=== PATIENT | female | born 1995 | race Caucasian/White ===

== ENCOUNTER 2022-10-19 19:33 | Emergency (ER) | payer MEDICAID, SELFPAY ==
[2022-10-19 19:33] VITALS: BP 136/62; PULSE 89; RESP 23; TEMP 36.8; O2SAT 100; BMI 43.9
--- NOTE | 2022-10-19 19:36 | ECG_ITS ---
APPROVED REPORT Exam: Resting ECG HR:86 bpm ECG Measurements Heart Rate 86 AXES NM 123 P 41 QRSd 90 QRS 92 QT 355 T 79 QTc 399 Conclusion SINUS RHYTHM BORDERLINE RIGHT AXIS DEVIATION [QRS AXIS > 90] BORDERLINE ECG UNCONFIRMED REPORT Electronically signed by : Terrence Sheffield MD 10/21/2022 09:56:36
--- NOTE | 2022-10-19 19:46 | XR_ITS ---
PROCEDURE INFORMATION: Exam: XR Chest Exam date and time: 10/19/22 07:45 PM Age: 27 years old Clinical indication: Injury or trauma; Patient HX: Bee sting per patient. ; Additional info: lesvia HERNANDEZ TECHNIQUE: Imaging protocol: Radiologic exam of the chest. Views: 2 views. COMPARISON: No relevant prior studies available. FINDINGS: Lungs: Unremarkable. No consolidation. Pleural spaces: Unremarkable. No pleural effusion. No pneumothorax. Heart/Mediastinum: Unremarkable. No cardiomegaly. Bones/joints: Unremarkable. IMPRESSION: No acute findings.
[2022-10-19 19:52] VITALS: PULSE 86
[2022-10-19 19:58] LABS: Basophils % 0.2 % (0.1-2.0); Eosinophils # 0.1 K/mm3 (0.0-0.4); Eosinophils % 1.1 % (0.1-12.0); Hematocrit 40.4 % (37.0-47.0); Hemoglobin 13.3 g/dL (12.2-16.2); Lymphocytes # 3.7 K/mm3 (0.7-4.5); Lymphocytes % 35.1 % (10-50); Mean Corpuscular Hemoglobin 28.4 pg (27.0-31.2); Mean Corpuscular Volume 85.9 fl (81-99); Monocytes # 0.7 K/mm3 (0.1-1.0); Monocytes % 6.2 % (1.7-9.3); Neutrophils # 6.1 K/mm3 (1.8-7.8); Neutrophils % 57.4 % (37.0-80.0); Platelet Count 256 K/mm3 (142-424); Red Cell Distribution Width 13.2 % (11.5-17.5); White Blood Count 10.6 K/mm3 (4.8-10.8)
[2022-10-19 20:03] LABS: Anion Gap 13.9 mEq/L (5-15); Blood Urea Nitrogen 16 mg/dl (7-17); Calcium 8.8 mg/dl (8.4-10.2); Carbon Dioxide 27 mmol/L (22.0-30.0); Chloride 103 mmol/L (98-107); Creatinine Clearance Estimated 122 mL/min (50-200); Estimated Glomerular Filt Rate 100 ml/min (>60); GFR (African American) 121 ML/MIN (>60); Glucose 114 mg/dl (74-100); Magnesium 1.8 mg/dl (1.6-2.3); Potassium 3.9 mmoL/L (3.5-5.1); Sodium 140 mmol/L (136-145)
[2022-10-19 20:08] LABS: C-Reactive Protein 2.2 mg/L (0-4)
--- NOTE | 2022-10-19 20:17 | HMH.EDALLER ---
Discharge Plan Disposition Patient Disposition: Home, Self-Care Prescriptions Prescriptions: New prednisone [prednisone] 20 mg tablet 20 mg PO BID Qty: 10 0RF epinephrine [EpiPen 2-Rolan] 0.3 mg/0.3 mL auto-injector 0.3 mg IM Q10M PRN (Reason: anaphylaxis) Qty: 2 0RF Rx Instructions: for 2 doses Referrals Follow up/Referrals: Estrella Ng APRN [Primary Care Provider] - See instructions Bert Winn [Referring] - See instructions Clinical Impressions Clinical Impression: Allergic reaction Instructions Patient Instructions: DI for Insect Bites and Stings Discharge ED Provider: Giacomo (ED)Jun Allergic React/Insect Bite HPI General Chief complaint: Allergic Reaction Stated complaint: Chest Pain Time Seen by Provider: 10/19/22 20:00 Mode of Arrival - ED Triage: Family Vehicle Source of Information: Patient and Medical Record Limitations: No Limitations History of Present Illness HPI narrative: after bee sting dev chest pain and itchy throat - MD complaint: allergic reaction Onset (ago): hour(s) Exposure: insect bite Symptoms: itching and difficulty breathing Treatment prior to arrival: none Allergies Allergy/AdvReac Type Severity Reaction Status Date / Time No Known Allergies Allergy Verified 10/19/22 19:39 Previous Allergic Reaction History: none Severity: moderate Related Data Previous Rx's Medication Instructions Recorded epinephrine 0.3 mg/0.3 mL 0.3 mg (0.3 mL) IM Q10M PRN 10/19/22 injection, auto-injector (EpiPen anaphylaxis #2 ea 2-Rolan) prednisone 20 mg tablet 20 mg PO BID #10 tabs 10/19/22 [facility] Disclaimer: The information contained in this section may have been updated after the patient was seen, as this information can be updated by other users. Social History Smoking Status: Current every day smoker alcohol intake: never current occupational status: employed Travel in the last 8 weeks: None ROS Obtained: Yes All systems reviewed & no additional complaints except as documented Physical Exam General General appearance: alert Head Head exam: normocephalic Eye Eye exam: Present PERRL and EOMI ENT ENT exam: Present mucous membranes moist Neck Neck exam: Present trachea midline Respiratory Respiratory exam: Present normal lung sounds bilaterally; Absent respiratory distress Cardiovascular Cardiovascular exam: Present regular rate; Absent systolic murmur Abdominal Exam Abdominal exam: Present soft Extremities Exam Extremities exam: Present full ROM Neurological Exam Neurological exam: Present alert, oriented X3 and CN II-XII intact; Absent motor sensory deficit Psychiatric Psychiatric exam: Present normal affect Skin Skin exam: Absent rash Medical Decision Making Medical Records Medical records reviewed: Yes I reviewed the patient's medical records. Fredo Inquiry Pt receiving controlled substance: No Vital Signs: 10/19/22 19:33 10/19/22 19:52 Temperature 98.3 F Temperature Source Oral Pulse Rate 86 Pulse Rate [Right] 89 Respiratory Rate 23 Blood Pressure [Right Arm] 136/62 Blood Pressure Mean [Right Arm] 86 Blood Pressure Source [Right Arm] Automatic Cuff 02 Sat by Pulse Oximetry 100 Oxygen Delivery Method Room Air Lab Data Lab results reviewed: Yes I reviewed the patient's lab results. Lab Results 10/19/22 19:35: WBC 10.6, RBC 4.70, Hgb 13.3, Hct 40.4, MCV 85.9, MCH 28.4, MCHC 33.0, RDW 13.2, Plt Count 256, MPV 8.0, Neut % (Auto) 57.4, Lymph % (Auto) 35.1, Bee % (Auto) 6.2, Eos % (Auto) 1.1, Baso % (Auto) 0.2, Neut # (Auto) 6.1, Lymph # (Auto) 3.7, Bee # (Auto) 0.7, Eos # (Auto) 0.1, Baso # (Auto) 0.0, ESR 25 H, Sodium 140, Potassium 3.9, Chloride 103, Carbon Dioxide 27, Anion Gap 13.9, BUN 16, Creatinine 0.70, Estimated Creat Clear 122, Estimated GFR 100, Est GFR ( Amer) 121, Glucose 114 H, Calcium 8.8, Magnesium 1.8, Troponin I < 0.01, C-Reactive Protein 2.2, Procalcitonin 0.034
[2022-10-19 20:21] LABS: Procalcitonin 0.034 ng/mL (0.0-2.0)
--- NOTE | 2022-10-19 20:22 | PC.NURSE ---
ASSISTED PATIENT TO Bathroom
[2022-10-19 20:30] LABS: Troponin I < 0.01 ng/ml (0.00-0.034)
[2022-10-19 20:37] LABS: Erythrocyte Sedimentation Rate 25 mm/hr (0-20)
[2022-10-19 21:00] VITALS: BP 129/81; PULSE 81; RESP 16; TEMP 36.8; O2SAT 99
== END 2022-10-19 21:02 | disposition home or self-care (01) ==
PROVIDERS: Emergency Provider Emergency Medicine; PCP Nurse Practitioner
DX: T63.441A Toxic effect of venom of bees, accidental (unintentional), initial encounter (principal); R07.9 Chest pain, unspecified; R06.89 Other abnormalities of breathing; F17.200 Nicotine dependence, unspecified, uncomplicated
CPT/HCPCS: 71046; 80048; 83735; 84145; 84484; 85025; 85651; 86140; 93005; 96361; 96374; 96375; 99285